=== PATIENT | female | born 1965 | race Hispanic/Latino ===

== ENCOUNTER 2017-08-18 09:05 | Outpatient (CLI) | payer BC ==
--- NOTE | 2017-08-18 09:56 | XRay Report ---
XRAY RIGHT KNEE 4 VIEWS: 08/18/17 09:05:00 CLINICAL: Knee pain. FINDINGS: Irregularity and altered trabeculae in the medial tibial plateau are suggestive of an old fracture with remodeling and deformity. No acute fracture or dislocation. Mild narrowing of the medial joint space with minimal osteophyte formation. The lateral joint space is normal. The patella is segmented and there appears to be a bone fragment in the medial patellofemoral joint on the sunrise view. Patellofemoral osteophytes and a quadriceps insertion enthesophyte. Mild anterior soft tissue edema. No joint effusion. IMPRESSION: 1. Old medial tibial plateau fracture with minimal osteoarthritis of the medial joint space. 2. Old patellar fracture with an avulsed bone fragment in the medial patellofemoral joint. 3. Patellofemoral joint osteoarthritis.
== END 2017-08-18 09:06 | disposition home or self-care (01) ==
LOC: SPVIMAG 09:05
PROVIDERS: ATTEND Orthopaedic Surgery
DX: S82.141D Displaced bicondylar fracture of right tibia, subsequent encounter for closed fracture with routine healing (principal); S82.001D Unspecified fracture of right patella, subsequent encounter for closed fracture with routine healing; M17.11 Unilateral primary osteoarthritis, right knee; X58.XXXD Exposure to other specified factors, subsequent encounter